=== PATIENT | male | born 1975 | race Hispanic/Latino ===

== ENCOUNTER 2017-05-07 17:17 | Emergency (ER) | payer SELFPAY ==
[~2017-05-07] VITALS: Ht 165.1 cm; Wt 76.3 kg
[2017-05-07] MEDS ORDERED: ROBITUSSIN AC,T10 ML PO (18:28)
[2017-05-07 18:47] VITALS: BP 140/96
== END 2017-05-07 18:48 | disposition home or self-care (01) ==
LOC: EME 17:17
DX: J06.9 Acute upper respiratory infection, unspecified (principal)
CPT/HCPCS: 71046; 93005; 99281; 99284; J8540